=== PATIENT | male | born 1985 | race Caucasian/White ===

== ENCOUNTER 2016-12-09 22:15 | Emergency (ER) | payer OTHER | END 2016-12-10 02:40 | disposition home or self-care (01) | LOC: ER 22:15 | DX: S41.112A Laceration without foreign body of left upper arm, initial encounter (principal); L03.114 Cellulitis of left upper limb; K21.9 Gastro-esophageal reflux disease without esophagitis; F17.210 Nicotine dependence, cigarettes, uncomplicated; Z88.0 Allergy status to penicillin; Z88.1 Allergy status to other antibiotic agents; W45.0XXA Nail entering through skin, initial encounter | CPT/HCPCS: 96372; J0696 ==